=== PATIENT | female | born 1975 | race Caucasian/White ===

== ENCOUNTER 2020-07-11 14:44 | Outpatient (REF) | payer OTHER, SELFPAY ==
--- NOTE | 2020-07-11 | MM_ITS ---
EXAMINATION: MM DIAGNOSTIC DIGITAL BREAST TOMOSYNTHESIS, BILATERAL CLINICAL INFORMATION: Due for yearly exam. Probable benign bilateral calcifications for follow-up. The lifetime risk of breast cancer based on the Tyrer-Cuzick Model is 8%. COMPARISON: Mammography: 12/25/2019, 06/25/2019, 06/08/2019 (BI-RADS 0), 06/01/2018 TECHNIQUE: Digital breast tomosynthesis is performed in both the craniocaudal and mediolateral oblique views along with computer-aided detection (CAD). Synthesized 2D images are generated from the tomosynthesis. Additional magnification views are obtained: Bilateral MLO, left CC, right CC x2. FINDINGS: There are scattered areas of fibroglandular density (ACR BI-RADS breast composition Category b). Parenchymal pattern is similar to prior exams. There is no interval mass or architectural abnormality or developing density. The bilateral calcifications for follow-up posterior outer right breast, posterior 3:00 left breast and anterior 8:30 o'clock left breast are similar to prior diagnostic exams. There are no increasing calcifications. They will be reassessed again at next bilateral annual mammography, due in 12 months. Results are provided to the patient at time of visit by the technologist. IMPRESSION: There are no significant changes from prior study. Probable benign bilateral calcifications for follow-up are stable. ASSESSMENT: BI-RADS 3: Probably Benign RECOMMENDATION: Diagnostic mammography at time of next annual exam, due in 12 months. This patient's information was entered into a reminder system with a target due date for their next mammogram.
== END 2020-07-11 14:45 | disposition home or self-care (01) ==
LOC: HO.MAMMO 14:44
PROVIDERS: PCP Internal Medicine; Visit Provider Internal Medicine
DX: R92.1 Mammographic calcification found on diagnostic imaging of breast (principal)
CPT/HCPCS: 77062; 77066; 78013

== ENCOUNTER 2021-07-27 13:44 | Outpatient (REF) | payer OTHER, SELFPAY ==
--- NOTE | ~2021-07-27 | MM_ITS ---
EXAMINATION: MM DIAGNOSTIC DIGITAL BREAST TOMOSYNTHESIS, BILATERAL CLINICAL INFORMATION: Due for yearly. Probable benign bilateral calcifications for long-term surveillance. The lifetime risk of breast cancer based on the Tyrer-Cuzick Model is 8%. COMPARISON: Mammography: 07/11/2020, 12/25/2019, 06/25/2019, 06/08/2019 (BI-RADS 0), 06/01/2018 TECHNIQUE: Digital breast tomosynthesis is performed in both the craniocaudal and mediolateral oblique views along with computer-aided detection (CAD). Synthesized 2D images are generated from the tomosynthesis. FINDINGS: There are scattered areas of fibroglandular density (ACR BI-RADS breast composition Category b). There is fine fibronodular parenchymal pattern without interval mass or developing density or architectural abnormality. There are bilateral increased calcifications since 2018 without interval focal increased grouping or ductal distribution or interval pleomorphic types from prior diagnostic exams. Calcifications are now considered to be benign. The axilla and skin contours are unremarkable. Results are provided to the patient at time of visit by the technologist. MM/MM tomosynthesis diagnostic BI IMPRESSION: No significant changes from prior diagnostic studies. ASSESSMENT: BI-RADS 2: Benign RECOMMENDATION: Routine annual mammography screening. This patient's information was entered into a reminder system with a target due date for their next mammogram.
== END 2021-07-27 13:45 | disposition home or self-care (01) ==
LOC: HO.MAMMO 13:44
PROVIDERS: Visit Provider Internal Medicine
DX: R92.1 Mammographic calcification found on diagnostic imaging of breast (principal)
CPT/HCPCS: 77062; 77066

== ENCOUNTER 2021-08-11 11:19 | Outpatient (REF) | payer OTHER, SELFPAY | END 2021-08-11 11:20 | disposition home or self-care (01) | LOC: HO.LAB 11:19 | PROVIDERS: Visit Provider Internal Medicine | DX: Z20.822 Contact with and (suspected) exposure to COVID-19 (principal) | CPT/HCPCS: C9803; U0003; U0005 ==

== ENCOUNTER 2022-02-08 16:34 | Emergency (ER) | payer OTHER, SELFPAY ==
--- NOTE | ~2022-02-08 | XR_ITS ---
EXAMINATION: CHEST 2 VIEWS CLINICAL INFORMATION: cough CP . COMPARISON: 09/22/2015. TECHNIQUE: PA and lateral views of the chest obtained. FINDINGS: The lungs are hypoexpanded. No focal infiltrate, effusion, edema, or pneumothorax. Cardiac and mediastinal silhouettes are within normal limits for technique. No acute bony abnormality seen XR/XR chest 2V IMPRESSION: Hypoexpanded but otherwise no evidence of acute disease
--- NOTE | 2022-02-08 17:06 | ECG_ITS ---
Test Reason : chest pain Blood Pressure : / mmHG Vent. Rate : 101 BPM Atrial Rate : 101 BPM P-R Int : 170 ms QRS Dur : 080 ms QT Int : 340 ms P-R-T Axes : 036 000 001 degrees QTc Int : 440 ms Sinus tachycardia Otherwise normal ECG When compared with ECG of 29-NOV-2004 11:19, No significant change was found Referred By: Generic ED Physician Electronically Signed By:MASON MARSHALL MD
[2022-02-08 17:32] VITALS: BP 149/93; PULSE 100; RESP 16; TEMP 36.1; O2SAT 100; BMI 29.9
[2022-02-08 17:49] LABS: MANUAL DIFF FLAG NO
[2022-02-08 17:51] LABS: Basophils Absolute Auto 0.1 X10*3/uL (0.0-0.2); Basophils Percent Auto 0.6 % (0-2); Eosinophils Absolute Auto 0.1 X10*3/uL (0.0-0.4); Eosinophils Percent Auto 0.9 % (0-4); Hematocrit 30.6 % (37.0-47.0); Hemoglobin 9.1 g/dl (12.0-16.0); Imm Gran Abs Auto 0.03 X10*3/uL (0.00-0.03); Imm Gran Pct Auto 0.3 % (0.0-0.4); Lymphocytes Percent Auto 19.1 % (20-40); Mean Corpuscular HGB Conc 29.7 g/dl (31.0-35.0); Mean Corpuscular Hemoglobin 22.1 pg (27.0-33.0); Mean Corpuscular Volume 74.3 fL (80.0-98.0); Mean Platelet Volume 9.7 fL (9.4-12.3); Monocytes Absolute Auto 0.4 X10*3/uL (0.1-1.2); Monocytes Percent Auto 4.2 % (2-11); Neutrophils Absolute Auto 7.7 x10*3/uL (2.0-8.3); Neutrophils Percent Auto 74.9 % (45-73); Platelet Count 351 X10*3/uL (160-400); Red Blood Count 4.12 X10*6/uL (4.20-5.50); White Blood Count 10.3 X10*3/uL (4.8-10.8)
[2022-02-08 18:09] LABS: Influenza A Negative (Negative); Influenza B2 Negative (Negative)
[2022-02-08 18:11] LABS: Anion Gap 13 (12-20); Blood Urea Nitrogen 11 mg/dL (9-16); Calcium 9.7 mg/dL (8.4-10.2); Carbon Dioxide 25 mmol/L (22-29); Chloride 106 mmol/L (96-108); Creatinine Clr Calc Pharmacy 90.6; Estimated Glomerular Filt Rate > 60; Glucose Random 96 mg/dL (60-115); Sodium 140 mmol/L (135-145)
[2022-02-08 18:20] LABS: Troponin-I High Sensitivity < 3.5 ng/L (<3.5-17.0)
--- NOTE | 2022-02-08 20:48 | ED_ITS ---
HPI - Chest Pain General Chief Complaint: Chest Pain Stated Complaint: high BP/chest pains Time Seen by Provider: 02/08/22 20:47 Source: patient History of Present Illness HPI narrative: This is a 46-year-old female with history of asthma who complains of a cough for about a week, productive of yellow phlegm. The patient denies any fever. She has had tightness in her chest and has been using her albuterol inhaler, although she realizes it was . She has had some chest discomfort with coughing. She denies any sore throat. She has had some rhinorrhea. She had a home COVID test that was negative. She denies any abdominal pain, vomiting, diarrhea. She did note she had little swelling in her feet this morning that is gone now. Related Data Previous Rx's Medication Instructions Recorded albuterol sulfate 90 mcg/actuation 2 puff INHALATION Q4-6H PRN #8.5 g 02/08/22 aerosol inhaler epfxorrjmvmdiew-oyiwvqcebsqllya-WX 5 ml PO Q4-6H PRN #118 ml 02/08/22 2 mg-30 mg-10 mg/5 mL oral syrup (Bromfed DM) prednisone 20 mg tablet 40 mg PO DAILY #8 tab 02/08/22 Allergies Allergy/AdvReac Type Severity Reaction Status Date / Time SEASONAL ALLERGIES Allergy Mild RUNNY NOSE Uncoded 07/24/20 13:43 COUGH Review of Systems Review of Systems: Yes all other systems are reviewed and are negative Constitutional: Constitutional: Reports as per HPI and Denies fever(s) Eyes: Eyes: Reports as per HPI and Reports no additional eye complaints ENT: Reports system reviewed and no additional complaints, except as documented, Reports as per HPI, Reports nasal congestion, Reports nasal discharge and Denies sore throat Cardiovascular: Cardiovascular: Reports as per HPI, Denies chest pain and Reports dyspnea Respiratory: Respiratory: Reports as per HPI, Reports cough, Reports dyspnea and Reports wheezing Gastrointestinal: Gastrointestinal: Reports as per HPI, Denies abdominal pain, Denies diarrhea and Denies vomiting Genitourinary: Genitourinary: Reports as per HPI, Denies hematuria, Denies urinary frequency and Denies dysuria Musculoskeletal: Musculoskeletal: Reports no additional musculoskeletal complaints and Denies numbness Integumentary/Breasts: Skin/Breast: Reports as per HPI and Denies rash Neurologic: Reports as per HPI, Denies focal weakness and Denies numbness Psychiatric: Psychiatric: Reports no additional psychiatric complaints and Reports as per HPI Endocrine: Endocrine: Reports no additional endocrine complaints and Reports as per HPI Hematologic/Lymphatic: Hematologic/Lymphatic: Reports no additional hematologic/lymphatic complaints, Reports as per HPI and Reports other (No peripheral edema) Allergic/Immunologic: Allergic/Immunologic: Reports wheezing PMFSH Past Medical History Medical History Physical exam Surgical History History of section History of tubal ligation Family History Family History Father Medical history unknown Mother No problems noted. Maternal Grandmother Diabetes Social History Social History Advance Directives: No Advance Directives Information Provided: No Physical Exam Vital Signs: Vital Signs: Last Vital Signs Temp 96.9 F 02/08/22 17:32 Pulse 100 02/08/22 20:57 Resp 18 02/08/22 20:57 BP 149/93 H 02/08/22 17:32 Pulse Ox 100 02/08/22 17:32 BMI result Body Mass Index 29.9 Const: Other: PERRLA Conj Singer Mucous membranes moist Throat clear Neck supple Lungs CTA, mildly decreased breath sounds bilaterally, no distinct wheezes Heart RRR no murmurs rubs or gallops Abs soft, non tender, non distended Extremities no pitting edema Neuro alert and oriented x 3, non focal MDM - Chest Pain [facility] Narrative Medical decision making narrative: Patient with URI symptoms and a cough for several days, has some associated chest pain. Chest x-ray was negative. COVID test is negative. Patient did have she has somewhat decreased breath sounds on exam, no actual wheezes, does have history of asthma. Patient was given a nebulizer treatment with improvement. Patient is being given refill of her albuterol, and also prescribed cough medicine, and prednisone Lab Data Result diagrams: 02/08/22 17:41 02/08/22 17:41 Labs: Lab Results 02/08/22 02/08/22 02/08/22 Range/Units 17:41 17:41 17:41 WBC 10.3 (4.8-10.8) X10*3/uL RBC 4.12 L (4.20-5.50) X10*6/uL Hgb 9.1 L (12.0-16.0) g/dl Hct 30.6 L (37.0-47.0) % MCV 74.3 L (80.0-98.0) fL MCH 22.1 L (27.0-33.0) pg MCHC 29.7 L (31.0-35.0) g/dl RDW 18.0 H (11.0-16.0) % Plt Count 351 (160-400) X10*3/uL MPV 9.7 (9.4-12.3) fL Immature Gran % (Auto) 0.3 (0.0-0.4) % Neut % (Auto) 74.9 H (45-73) % Lymph % (Auto) 19.1 L (20-40) % [place] % (Auto) 4.2 (2-11) % Eos % (Auto) 0.9 (0-4) % Baso % (Auto) 0.6 (0-2) % Lymph # (Auto) 2.0 (1.2-4.9) X10*3/uL [place] # (Auto) 0.4 (0.1-1.2) X10*3/uL Eos # (Auto) 0.1 (0.0-0.4) X10*3/uL Baso # (Auto) 0.1 (0.0-0.2) X10*3/uL Abs Immat Gran (auto) 0.03 (0.00-0.03) X10*3/uL Absolute Neuts (auto) 7.7 (2.0-8.3) x10*3/uL Absolute Nucleated RBC 0.000 (0.0-0.012) X10*3/uL Nucleated RBC % (auto) 0.0 (0.0-0.2) /100WBC Sodium 140 (135-145) mmol/L Potassium 4.0 (3.3-5.1) mmol/L Chloride 106 (96-108) mmol/L Carbon Dioxide 25 (22-29) mmol/L Anion Gap 13 (12-20) BUN 11 (9-16) mg/dL Creatinine 0.76 (0.5-1.4) mg/dL Estim Creat Clear Calc 90.6 Estimated GFR > 60 Random Glucose 96 (60-115) mg/dL Calcium 9.7 (8.4-10.2) mg/dL Troponin I High Sens < 3.5 (<3.5-17.0) ng/L Influenza Type A (RADHIKA) (Negative) Influenza Type B (RADHIKA) (Negative) Influenza A & B Note 02/08/22 Range/Units 17:41 WBC (4.8-10.8) X10*3/uL RBC (4.20-5.50) X10*6/uL Hgb (12.0-16.0) g/dl Hct (37.0-47.0) % MCV (80.0-98.0) fL MCH (27.0-33.0) pg MCHC (31.0-35.0) g/dl RDW (11.0-16.0) % Plt Count (160-400) X10*3/uL MPV (9.4-12.3) fL Immature Gran % (Auto) (0.0-0.4) % Neut % (Auto) (45-73) % Lymph % (Auto) (20-40) % [place] % (Auto) (2-11) % Eos % (Auto) (0-4) % Baso % (Auto) (0-2) % Lymph # (Auto) (1.2-4.9) X10*3/uL [place] # (Auto) (0.1-1.2) X10*3/uL Eos # (Auto) (0.0-0.4) X10*3/uL Baso # (Auto) (0.0-0.2) X10*3/uL Abs Immat Gran (auto) (0.00-0.03) X10*3/uL Absolute Neuts (auto) (2.0-8.3) x10*3/uL Absolute Nucleated RBC (0.0-0.012) X10*3/uL Nucleated RBC % (auto) (0.0-0.2) /100WBC Sodium (135-145) mmol/L Potassium (3.3-5.1) mmol/L Chloride (96-108) mmol/L Carbon Dioxide (22-29) mmol/L Anion Gap (12-20) BUN (9-16) mg/dL Creatinine (0.5-1.4) mg/dL Estim Creat Clear Calc Estimated GFR Random Glucose (60-115) mg/dL Calcium (8.4-10.2) mg/dL Troponin I High Sens (<3.5-17.0) ng/L Influenza Type A (RADHIKA) Negative (Negative) Influenza Type B (RADHIKA) Negative (Negative) Influenza A & B Note See Note Imaging Data Chest x-ray: Radiologist's impression: IMPRESSION: Hypoexpanded but otherwise no evidence of acute disease ECG Data ECG #1: ECG interpretation date: 02/08/22 ECG interpretation time: 20:53 Interpretation: Normal sinus rhythm with a rate of 101. No ST elevation depression. Normal QRS axis. Discharge Plan Discharge Clinical Impression: URI (upper respiratory infection), Asthma exacerbation Patient Disposition: Home, Self-Care Instructions: Asthma (ED), Upper Respiratory Infection (ED) Additional Instructions: Drink plenty of fluids. Use the albuterol inhaler, and prednisone as prescribed. Use the room affect cough medicine. Return for any new or worse symptoms. Prescriptions: New albuterol sulfate 90 mcg/actuation HFA aerosol inhaler 2 puff inhalation Q4-6H PRN (Reason: shortness of breath or wheezing) Qty: 8.5 1RF prednisone 20 mg tablet 40 mg PO DAILY Qty: 8 0RF atyrwtzhgkylnyg-xswquditw-FX [Bromfed DM] 2-30-10 mg/5 mL syrup 5 ml PO Q4-6H PRN (Reason: cold symptoms) Qty: 118 0RF Stand Alone Forms: Work/School Release Interventions: ED Discharge Assessment Last Done: 02/08/22 22:31 Discharge Date/Time: 02/08/22 22:31
[2022-02-08] MEDS: Albuterol/Iprat 2.5/0.5MG 3 ML AMPUL.NEB INHALE (20:56)
[2022-02-08 20:57] VITALS: PULSE 100; RESP 18; O2SAT 100
[2022-02-08] MEDS: predniSONE 20 MG TABLET 40 MG PO (21:43)
== END 2022-02-08 22:31 | disposition home or self-care (01) ==
PROVIDERS: Emergency Provider Emergency Medicine; PCP Internal Medicine
DX: J06.9 Acute upper respiratory infection, unspecified (principal); J45.901 Unspecified asthma with (acute) exacerbation; R05.9 Cough, unspecified; R07.89 Other chest pain; Z20.822 Contact with and (suspected) exposure to COVID-19; Z79.899 Other long term (current) drug therapy
CPT/HCPCS: 71046; 80048; 84484; 85025; 87502; 93005; 94640; 99284

== ENCOUNTER 2023-03-27 21:31 | Observation (INO) | payer OTHER, SELFPAY ==
[2023-03-27] VITALS (8 sets, daily range): BP systolic 135–157; BP diastolic 59–87; PULSE 122–137; RESP 13–20; TEMP 36.8–37.1; O2SAT 99–100; BMI 29.2
--- NOTE | 2023-03-27 21:32 | ED_ITS ---
HPI - General Adult General Chief complaint: Allergic Reaction Stated complaint: anaphalaxis Time Seen by Provider: 03/27/23 21:32 Source: patient Mode of arrival: ambulatory Limitations: no limitations History of Present Illness HPI narrative: Patient is a 48 year old assigned female at with no reported medical history presenting to the emergency department today with an allergic reaction. Patient states that 15 minutes prior to arrival she had a peInsurityan candy bar that had coconut in it. Patient states that almost immediately after she began to feel like her throat was swelling and her voice changed. Patient denies any dizziness, lightheadedness, abdominal pain, nausea, vomiting, fever, chills, bl urry vision, double vision, loss of vision, chest pain, difficulty breathing, shortness of breath, back pain, night sweats, pain with urination, increased urinary frequency, increased urinary urgency, blood in her urine or stool, syncope or a near syncopal episode, recent trauma or falls, bowel incontinence, bladder incontinence, bowel retention, bladder retention, or any other complaints at this time. Onset (ago): minute(s) (15) Severity: severe Severity scale (1-10): 7 Relieving factors: none Exacerbating factors: none Associated symptoms: denies other symptoms Treatments prior to arrival: none Related Data Previous Rx's Medication Instructions Recorded albuterol sulfate 90 mcg/actuation 2 puff inhalation Q4-6H PRN 02/08/22 aerosol inhaler shortness of breath or wheezing #8.5 grams Allergies Allergy/AdvReac Type Severity Reaction Status Date / Time SEASONAL ALLERGIES Allergy Mild RUNNY NOSE Uncoded 03/28/23 00:57 COUGH Review of Systems Constitutional: Constitutional: Reports no additional constitutional complaints, Denies chills, Denies fever(s) and Denies night sweats Eyes: Eyes: Reports no additional eye complaints, Denies blurry vision, Denies change in vision, Denies diplopia, Denies eye discharge, Denies loss of vision and Denies eye pain ENT: Reports change in voice, Denies dizziness and Reports throat swelling Cardiovascular: Cardiovascular: Reports no additional cardiovascular complaints, Denies chest pain, Denies lightheadedness, Denies Loss of Co nsciousness and Denies dyspnea Respiratory: Respiratory: Reports no additional respiratory complaints and Denies dyspnea Gastrointestinal: Gastrointestinal: Reports no additional gastrointestinal complaints, Denies abdominal pain, Denies melena, Denies hematochezia, Denies change in bowel habits and Denies change in stool character Genitourinary: Genitourinary: Denies hematuria, Denies urinary frequency, Denies dysuria, Denies urinary incontinence, Denies urinary hesitancy and Denies urinary urgency Musculoskeletal: Musculoskeletal: Reports no additional musculoskeletal complaints, Denies numbness and Denies tingling Neurologic: Denies dizziness, Denies loss of vision, Denies numbness and Denies tingling Psychiatric: Psychiatric: Reports no additional psychiatric complaints Endocrine: Endocrine: Reports no additional endocrine complaints Hematologic/Lymphatic: Hematologic/Lymphatic: Reports no additional hematologic/lymphatic complaints Allergic/Immunologic: Allergic/Immunologic: Reports no additional allergic/immunologic complaints and Reports throat swelling PMFSH Past Medical History Attestation statement: The following information was validated with the patient. Source: old records reviewed and nursing notes reviewed Medical History Physical exam Surgical History History of section History of tubal ligation Family History Family History Father Medical history unknown Mother No problems noted. Maternal Grandmother Diabetes Social History Social History Alcohol intake: never Smoked in Last 30 Days: No Use of substances other than those prescribed or required for medical reasons: No Advance Directives: No Advance Directives Information Provided: No Patient : No Physical Exam ED Vital Signs: Vital Signs - 24 hr 03/27/23 21:38 03/27/23 21:49 03/27/23 21:41 Temperature 98.3 F Pulse Rate 124 H 137 H 122 H Respiratory Rate 18 Blood Pressure 135/87 135/87 135/87 Pulse Oximetry 100 Oxygen Delivery Method Room Air 03/27/23 21:53 03/27/23 22:17 03/27/23 22:30 Temperature Pulse Rate 124 H 128 H 128 H Respiratory Rate 16 13 Blood Pressure 148/84 H 157/77 H Pulse Oximetry 100 Oxygen Delivery Method Room Air 03/27/23 22:36 03/27/23 23:15 03/28/23 00:42 Temperature 98.7 F Pulse Rate 132 H 126 H 131 H Respiratory Rate 20 Blood Pressure 154/74 H 148/59 H 112/50 L Pulse Oximetry 99 Oxygen Delivery Method Room Air BMI result Body Mass Index 29.2 Const General: cooperative, no acute distress, alert and awake Nutritional Appearance: well nourished Orientation/consciousness: patient oriented x3 Limitations: no limitations HENMT Head: Yes normal to inspection and Yes atraumatic Ears: hearing grossly normal bilaterally and external ears normal General nose exam: Normal external nose present, no nasal discharge noted and no epistaxis Face and sinus: Yes normal facial exam, No abrasion and No laceration Mouth: no drooling and other (significant uvular swelling and a hoarse voice) Eyes General: appearance normal, both eyes and all related structures Periorbital: periorbital findings normal Eyelids: Yes eyelids normal Conjunctivae: conjunctivae normal Pupils: Equal, round and reactive pupils present EOM: EOMs intact bilaterally Neck Neck: Yes normal visual inspection, Yes full ROM and Yes no lymphadenopathy Chest Chest palpation & inspection: normal inspection of the chest Resp Effort & Inspection: normal respiratory effort and able to speak in complete sentences Auscultation: clear to auscultation bilaterally Cardio Rate: regular rate Rhythm: regular rhythm GI Inspection: Yes normal to inspection Neuro General: patient oriented x3 and moves all extremities Cranial nerves: Yes Equal, round and reactive pupils present Cognition (Neuro): normal cognition Motor exam (neuro): 5/5 motor strength present throughout Sensory Exam: Normal double simultaneous stimulation for sensation Coordination: heduqw-bq-vtux test normal Extrem General: Yes normal to inspection, Yes full ROM and Yes capillary refill normal Psych Appearance: grossly normal Mental Status: mental status grossly normal Affect: normal affect Attitude: cooperative Thought process: Normal thought process present Thought content: Normal thought content present Insight: Good insight present (Psych) Medications Administered Generic Name Dose Route Start Last Admin Trade Name Freq PRN Reason Stop Dose Admin Epinephrine 5 mg/ Dextrose 255 mls @ 0 mls/hr 03/27/23 22:15 03/28/23 00:42 IVCONT 0 mcg/kg/min .Q0M DAVID 0 mls/hr Titration Protocol Per Protocol Potassium Chloride 10 meq in 100 mls @ 100 mls/hr 03/27/23 22:45 03/27/23 23:54 Potassium Chloride/H20 IV 03/28/23 02:44 100 mls/hr Q1H DAVID Administration Discontinued Medications Generic Name Dose Route Start Last Admin Trade Name Hudson PRN Reason Stop Dose Admin Diphenhydramine HCl 50 mg 03/27/23 21:33 03/27/23 21:46 Diphenhydramine Hcl 50 Mg/Ml Vial IVPUSH 03/27/23 21:34 50 mg ONCE ONE Administration Epinephrine 0.3 mg 03/27/23 21:34 03/27/23 21:41 Epinephrine 1 Mg/Ml Vial IM 03/27/23 21:35 0.3 mg STAT STA Administration Epinephrine 0.3 mg 03/27/23 21:44 03/27/23 21:49 Epinephrine 1 Mg/Ml Vial IM 03/27/23 21:45 0.3 mg STAT STA Administration Epinephrine 0.5 ml 03/27/23 21:45 03/27/23 21:53 Racepinephrine Hcl 0.5 Ml Vial.Neb INHALE 03/27/23 21:46 0.5 ml ONCE ONE Administration Epinephrine 0.3 mg 03/27/23 22:13 03/27/23 22:17 Epinephrine 1 Mg/Ml Vial IM 03/27/23 22:14 0.3 mg STAT STA Administration Methylprednisolone Sodium Succinate 60 mg 03/27/23 21:33 03/27/23 21:46 Methylprednisolone Sod Succ 125 Mg/2 Ml Vial IVPUSH 03/27/23 21:34 60 mg ONCE ONE Administration Medical Decision Making Medical Decision Making [facility] Narrative: Patient is a 48 year old assigned female at with no reported medical hist ory presenting to the emergency department today with an allergic reaction. Patient's physical exam was as noted in the physical exam portion of this chart. Patient's blood work showed a decreased potassium of 2.8 however, it was otherwise unremarkable. Patient was given 0.3 mg IM at 2133 with benadryl and solu medrol. Patient's swelling did not improve. Patient was given an additional 0.3mg of IM epi at 2143 as well as racemic epi. Her swelling did not improve. Patient was given an additional 0.3mg of IM epi and at that time the decision to start an epi drip was made by myself and my [address]ffie [address]. Santamaria. At 2240, I contacted Dr. Warren, the intesnivist production control manager, who agreed to admission into the ICU and stated his NEGIN would come examine the patient. At 0040 on 03/28/2023 the ICU NEGIN came down to the department and examined the patient. He stopped the epi drip and stated the patient looked significantly better and should be admitted to the hospitalist rather than the ICU. I re-examined the patient and the patient's swelling has improved significantly. I spoke to the hospitalist who agreed to admission. I explained my physical exam findings as well as all test results to the patient. I answered all questions asked by the patient. Patient verbalized agreement and understanding with this treatment plan and admission. Differential Diagnosis Differential Diagnoses: The differential diagnosis associated with the presentation includes allergic reaction, uvular swelling Admission/Observation Consideration of admission/observation: Escalation of care including admission/observation considered Patient to be admitted. Consult Healthcare Provider Management of the patient was discussed with: Hospitalist (as noted in the MDM portion of this chart.) and Coding Compliance Auditor (as noted in the MDM portion of this chart.) Lab Data MDM Lab Attestation statement: I reviewed the patient's lab results. My interpretation of these results is noted in the MDM portion of this chart. 03/27/23 22:11 03/27/23 22:11 Labs: Lab Results 03/27/23 03/27/23 Range/Units 22:11 22:11 WBC 13.9 H (4.8-10.8) X10*3/uL RBC 4.74 (4.20-5.50) X10*6/uL Hgb 10.1 L (12.0-16.0) g/dl Hct 35.1 L (37.0-47.0) % MCV 74.1 L (80.0-98.0) fL MCH 21.3 L (27.0-33.0) pg MCHC 28.8 L (31.0-35.0) g/dl RDW 18.6 H (11.0-16.0) % Plt Count 424 H (160-400) X10*3/uL MPV 9.6 (9.4-12.3) fL Immature Gran % (Auto) 0.2 (0.0-0.4) % Neut % (Auto) 54.3 (45-73) % Lymph % (Auto) 34.6 (20-40) % [place] % (Auto) 8.6 (2-11) % Eos % (Auto) 1.6 (0-4) % Baso % (Auto) 0.7 (0-2) % Lymph # (Auto) 4.8 (1.2-4.9) X10*3/uL [place] # (Auto) 1.2 (0.1-1.2) X10*3/uL Eos # (Auto) 0.2 (0.0-0.4) X10*3/uL Baso # (Auto) 0.1 (0.0-0.2) X10*3/uL Abs Immat Gran (auto) 0.03 (0.00-0.03) X10*3/uL Absolute Neuts (auto) 7.5 (2.0-8.3) x10*3/uL Absolute Nucleated RBC 0.000 (0.0-0.012) X10*3/uL Nucleated RBC % (auto) 0.0 (0.0-0.2) /100WBC Sodium 141 (135-145) mmol/L Potassium 2.8 L D (3.3-5.1) mmol/L Chloride 105 (96-108) mmol/L Carbon Dioxide 24 (22-29) mmol/L Anion Gap 15 (12-20) BUN 17 H (9-16) mg/dL Creatinine 0.81 (0.5-1.4) mg/dL Estim Creat Clear Calc 82.3 Estimated GFR > 60 Random Glucose 109 (60-115) mg/dL Calcium 9.9 (8.4-10.2) mg/dL Magnesium 2.1 (1.6-2.6) mg/dL Total Bilirubin 0.3 (0.0-1.0) mg/dL AST 29 (5-31) U/L ALT 24 (0-31) U/L Alkaline Phosphatase 87 (39-117) U/L Total Protein 8.3 H (6.5-8.0) g/dL Albumin 4.5 (3.5-5.0) g/dL Critical Care Time Critical Care Time Critical Care Time: Yes Total Critical Care Time: 45 Attestation: I spent 45 minutes of Critical Care Time with this patient. This does not include time spent on separately reported billable procedures. Discharge Plan Discharge Clinical Impression: Allergic reaction Patient Disposition: Admitted As Inpatient Prescriptions: No Action albuterol sulfate 90 mcg/actuation HFA aerosol inhaler 2 puff inhalation Q4-6H PRN (Reason: shortness of breath or wheezing) Qty: 8.5 1RF prednisone 20 mg tablet 40 mg PO DAILY Qty: 8 0RF kcwklaolvupkrbo-qyqvetizk-KI [Bromfed DM] 2-30-10 mg/5 mL syrup 5 ml PO Q4-6H PRN (Reason: cold symptoms) Qty: 118 0RF
[2023-03-27] MEDS: EPINEPHrine 1 MG/ML VIAL 0.3 MG IM ×3 (21:41→22:17)
[2023-03-27] MEDS: methylPREDNISolone Sod Succ 125 MG/2 ML VIAL 60 MG IVPUSH (21:46)
[2023-03-27] MEDS: diphenhydrAMINE HCL 50 MG/ML VIAL IVPUSH (21:46)
--- NOTE | 2023-03-27 21:51 | PC.NURSE ---
Assumed care of pt. Pt sitting on stretcher, obvious distress noted. pt has swelling in back of throat, complaints of difficulty swallowing, swelling of tongue. 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 Medicated pt per orders with some relief. respiratory and provider at bedside for further assessment and treatments. Pt maintaning own airway and able to speak at this time, vitals as charted. WCTM.
[2023-03-27] MEDS: Racepinephrine HCL 0.5 ML VIAL.NEB INHALE (21:53)
[2023-03-27 22:14] LABS: MANUAL DIFF FLAG NO
[2023-03-27 22:18] LABS: Basophils Absolute Auto 0.1 X10*3/uL (0.0-0.2); Basophils Percent Auto 0.7 % (0-2); Eosinophils Absolute Auto 0.2 X10*3/uL (0.0-0.4); Eosinophils Percent Auto 1.6 % (0-4); Hematocrit 35.1 % (37.0-47.0); Hemoglobin 10.1 g/dl (12.0-16.0); Imm Gran Abs Auto 0.03 X10*3/uL (0.00-0.03); Imm Gran Pct Auto 0.2 % (0.0-0.4); Lymphocytes Absolute Auto 4.8 X10*3/uL (1.2-4.9); Lymphocytes Percent Auto 34.6 % (20-40); Mean Corpuscular HGB Conc 28.8 g/dl (31.0-35.0); Mean Corpuscular Hemoglobin 21.3 pg (27.0-33.0); Mean Corpuscular Volume 74.1 fL (80.0-98.0); Mean Platelet Volume 9.6 fL (9.4-12.3); Monocytes Absolute Auto 1.2 X10*3/uL (0.1-1.2); Monocytes Percent Auto 8.6 % (2-11); Neutrophils Absolute Auto 7.5 x10*3/uL (2.0-8.3); Neutrophils Percent Auto 54.3 % (45-73); Platelet Count 424 X10*3/uL (160-400); Red Blood Count 4.74 X10*6/uL (4.20-5.50); Red Cell Distribution Width 18.6 % (11.0-16.0); White Blood Count 13.9 X10*3/uL (4.8-10.8)
[2023-03-27] MEDS: EPINEPHrine 5 MG in Dextrose 5 % 250 ML 45.8 MG IVCONT (22:36)
[2023-03-27 22:39] LABS: Alanine Aminotransferase 24 U/L (0-31); Albumin Level 4.5 g/dL (3.5-5.0); Alkaline Phosphatase 87 U/L (39-117); Anion Gap 15 (12-20); Aspartate Amino Transferase 29 U/L (5-31); Bilirubin Total 0.3 mg/dL (0.0-1.0); Blood Urea Nitrogen 17 mg/dL (9-16); Calcium 9.9 mg/dL (8.4-10.2); Carbon Dioxide 24 mmol/L (22-29); Chloride 105 mmol/L (96-108); Creatinine Clr Calc Pharmacy 82.3; Estimated Glomerular Filt Rate > 60; Glucose Random 109 mg/dL (60-115); Magnesium 2.1 mg/dL (1.6-2.6); Potassium 2.8 mmol/L (3.3-5.1); Sodium 141 mmol/L (135-145); Total Protein 8.3 g/dL (6.5-8.0)
[2023-03-27] MEDS: Potassium Chloride/H20 10 MEQ/100 ML PIGGYBACK 100 MEQ IV ×2 (22:54→23:54)
--- NOTE | 2023-03-27 23:16 | MHC.EDTECH ---
THIS PCT ASSUMED CARE OF PATIENT AT 2300 ,VITALS SIGN TAKEN PT IS RESTING QUIETLY IN BED ,CECILIA MENDOZA AND DEMETRI IS AWARE OF PT HIGH HEART RATE .
--- NOTE | 2023-03-27 23:42 | PC.NURSE ---
Pt reponding well to administered medication drip. Maintaining some swelling in back of throat, but speech improved from arrival. Pt sts feeling palpitaions secondary to medication admin. WCTM
[2023-03-28 00:42] VITALS: BP 112/50; PULSE 131
--- NOTE | 2023-03-28 00:43 | PC.NURSE ---
Per inpatient, pt to receive additional medications, Epi drip on hold, and plan for reevaluation for possible downgrade.
--- NOTE | 2023-03-28 00:50 | P.CONCC_ITS ---
History of Present Illness Data of Consult Service Date: 03/28/23 Requesting physician: Jen Mcduffie Primary Care Provider: Leslie Resendiz MD HPI Reason for consult: allergic reaction HPI: ?48-year-old female without a past medical history, presents to us via consult from the emergency room where she was seen with complaints of shortness of breath after eating a candy brought to her from [place], even though she has had these in the past, she thinks that maybe the coconut in it is causing her to have a allergic reaction.? She immediately felt the her voice was changing and had a sensation as if her throat was swelling.? Denies any rash, problems speaking, swallowing, any drooling, shortness of breath.? She does not take any medications and does not think there is anything else that could have caused this. ? 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 ?Her workup in addition was significant for low potassium of 2.6.? The patient was given 60 mg of Solu-Medrol and 50 mg of Benadryl followed by a few doses of epinephrine IM and subsequently the patient was placed on a epinephrine drip. ? During my evaluation, the patient is able to speak in full sentences, denies any of the above-mentioned symptoms again, she did not have any lip swelling, feels much better and is eager to have some more ice chips.? Currently denies any dizziness, lightheadedness, arm or leg swelling, neck swelling, rash, itchiness and does not take any medications. Patient does feel slightly tachycardic but I explained to her disease due to the medications she is receiving. ? Review of systems: As above, otherwise the patient denies any prior history of strokes, cold intolerance, migraine headaches, head trauma, no eyes, ears or nose problems, no thyroid disease, denies any history of chest pain, palpitations, coronary disease, cough, sputum production, pneumonia, bronchitis, COPD or emphysema, abdominal pain, nausea, vomiting, diarrhea, abdominal surgeries, melena, hematochezia, hematemesis, hematuria, kidney stones, liver problems, immunocompromise state of any kind, no history of DVT or PE, leg edema, fractures or extremity surgeries all other review of systems were reviewed and they were all negative. ? Past Medical History:? As above ? Past Surgical History: Tubal ligation ? Family history:? Her grandmother had diabetes ? Social History:? Lives home, no history of alcohol, tobacco or drug use ever. ? CODE STATUS: FULL CODE ? Allergies: NKDA ? Home Medications: See Med Rec ? PHYSICAL EXAM: VS: 112/50, 131, 16, 96% room air General:? Alert oriented x3 no acute distress.? Speaking full sentences.? Speech is well articulated, thought process is coherent.? Following all commands. Skin:? Intact, no lesions, edema, erythema, clubbing or cyanosis.? No ulcers. HEENT:? Head is normocephalic, atraumatic, pupils equal round reactive to light accommodation bilaterally.? Extraocular movements appear intact.? Buccal mucosa is moist, there is some minimal uvular edema however her airway appears to be fully patent, there is no anatomical obstruction during exam, the patient is able to swallow her own saliva and is consuming ice chips without any cough, pain or difficulty. ?Neck is supple without lymphadenopathy, thickness or swelling. Cardiac:? Tachycardic 130 beats per minute.? 3/6 left upper sternal border murmur, appears crash in though.? No rubs or gallops. ? Pulmonary:? Clear to auscultation, no wheezes, rales or rhonchi. Abdomen:? Protuberant, positive bowel sounds in all 4 quadrants.? Soft, nontender, no rebound or guarding.? Musculoskeletal:? Moving all 4 extremities upon request a major joints, there is no crepitus or tenderness.? The strength is 5/5 bilaterally and throughout all 4 extremities.? There is no leg edema , no calf tenderness , no leg asymmetry.? Gait not assessed at this point. Neurologic:? As above, cranial nerves 2-12 are grossly intact.? No focal deficits noted. Vascular:? 2+ pulses upper and lower extremities distally. ? SIGNIFICANT LABORATORY DATA:? As above White blood cells 13.9, hemoglobin 10.1, hematocrit 35.1, platelets 424, M CV 74, eosinophils 1.6%.? Sodium 141, potassium 2.8, chloride 105, carbon dioxide 24, anion gap 15, BUN 17, creatinine 0.8, magnesium 2.1, calcium 9.9.? Random glucose 109. ? REVIEW OF IMAGES: ?Not performed. ? EKG REVIEW: ?Sinus tachycardia 101 beats per minute.? There is no ST elevations, no ST depressions.? QTC 440.? No comparison. ? ASSESSMENT : 1. Acute allergic reaction (I do not think this represents anaphylaxis or angioedema) 2. Acute hypokalemia 3. Reactive tachycardia 4. Reactive leukocytosis 5. Microcytic anemia rule out iron deficiency, microscopic bleeding 6. Thrombocytosis NOS 7. Clinical dehydration with borderline BUN creatinine ratio of 21 ? PLAN OF CARE: As above mentioned, the patient was seen, examined and evaluated by me, I do not think the patient needs to go to ICU at this point.? The patient is clearly doing well at this point sitting up straight, happy and talkative, no stridor, no drooling, no tripoding, no wheezing, no difficulty swallowing, no shortness of breath during the immediate reaction or now. I do not think the patient needs epinephrine drip at this point. The patient should receive ongoing doses of steroids perhaps 60 mg every 6 hours for the next 24 hours Benadryl 50 mg q.8 hours I did suggest starting her on famotidine now and every 12 hours. Even the near future her weight is again of concern, a soft tissue lateral x-ray can be obtained.? Certainly the patient deteriorates will be happy to re- evaluate this patient. The case was discussed in detail with the physician procurement assistant from the emergency room as well as Dr. Mcduffie, in addition the case was discussed with hospitalist. Patient should have outpatient allergy testing.? Coconut should be listed as an allergy as according to the patient is the most likely cause of her symptoms. ? Critical care time used for critical evaluation of this patient, diagnosis, treatment and coordination of care, review her records and documentation TOTAL CRITICAL CARE TIME 60 MIN . discussion and coordination with consultants, completely separate from any procedures performed. Patient's care was discussed in detail with Dr. Martini.? He is aware of all the above as well as the plan of care for this patient. [facility] Past Medical History Medical History Physical exam Family History Family History Father Medical history unknown Mother No problems noted. Maternal Grandmother Diabetes Surgical History Surgical History History of section History of tubal ligation Social History Social History Alcohol intake: never Patient Tobacco Use Status: Never used Tobacco Smoked in Last 30 Days: No Use of substances other than those prescribed or required for medical reasons: No Advance Directives: No Advance Directives Information Provided: No Nutrition Risks: No Nutritional Risk Patient : No Meds Allergies Allergy/AdvReac Type Severity Reaction Status Date / Time coconut Allergy Anaphylaxis Verified 03/28/23 03:06 SEASONAL ALLERGIES Allergy Mild RUNNY NOSE Uncoded 03/28/23 00:57 COUGH Active Medications: Current Medications Epinephrine 5 mg/ Dextrose 255 mls @ 0 mls/hr IVCONT .Q0M DAVID; Protocol Last Titration: 03/28/23 00:42 Dose: 0 mcg/kg/min, 0 mls/hr Potassium Chloride (Potassium Chloride/H20) 10 meq in 100 mls @ 100 mls/hr IV Q1H DAVID Stop: 03/28/23 02:44 Last Admin: 03/27/23 23:54 Dose: 100 mls/hr Pharmacy Consult (Consult Rx Perform Med Rec) 1 each MISCELLANE ONCE PRN PRN Reason: Consult order Physical Exam Vital Signs: Vital Signs: Last Vital Signs Temp 98.7 F 03/27/23 23:15 Pulse 131 H 03/28/23 00:42 Resp 20 03/27/23 23:15 BP 112/50 L 03/28/23 00:42 Pulse Ox 99 03/27/23 23:15 O2 Del Method Room Air 03/27/23 23:15 BMI result Body Mass Index 29.2 Results Labs 03/27/23 22:11 03/27/23 22:11 Labs: Short CBC 03/27/23 Range/Units 22:11 WBC 13.9 H (4.8-10.8) X10*3/uL Hgb 10.1 L (12.0-16.0) g/dl Hct 35.1 L (37.0-47.0) % Plt Count 424 H (160-400) X10*3/uL BMP 03/27/23 22:11 Sodium 141 Potassium 2.8 L D Chloride 105 Carbon Dioxide 24 BUN 17 H Creatinine 0.81 Calcium 9.9 Liver Function 03/27/23 Range/Units 22:11 Total Bilirubin 0.3 (0.0-1.0) mg/dL AST 29 (5-31) U/L ALT 24 (0-31) U/L Alkaline Phosphatase 87 (39-117) U/L Albumin 4.5 (3.5-5.0) g/dL Assessment and Plan Time Spent With Patient Time: Total time managing care of this patient today ____ minutes.
[2023-03-28] MEDS: Potassium Chloride/H20 10 MEQ/100 ML PIGGYBACK 100 MEQ IV ×2 (00:51→01:56)
[2023-03-28] MEDS: Famotidine/PF 20 MG/2 ML VIAL 40 MG IVPUSH (00:51)
--- NOTE | 2023-03-28 01:02 | PC.NURSE ---
Continuing K administration per orders. Pt with no continued complaints at this time. Voice sounds clear, baseline per pt and sig other present. WCTM for possible downgrade.
--- NOTE | 2023-03-28 01:41 | P.HPHOSP_ITS ---
History of Present Illness Date of Service: 03/28/23 Chief Complaint: allergic reaction this is a 40-year-old female with no significant past medical history who comes in from home after having an allergic reaction. She reports that she ate a piece of sweet that contained coconut, and shortly after developed mouth tingling, and felt like her throat was closing and she had difficulty breathing and talking. she felt that her throat was swelling. She otherwise denies any chest pain, no change in vision, no cough, no shortness of breath, no abdominal pain nausea or vomiting, no diarrhea constipation, no urinary symptoms and no lower extremity edema. On arrival to the ED patient noted to have uvula swel ling. she received IM Benadryl and Solu-Medrol with swelling persistent, she was a also given IM epinephrine as well as racemic epi. His swelling did not improve. Patient was given an additional 0.3 mg of IM epi and the decision was made to start her on an epi drip. Patient was initially accepted to ICU but several hours later she did improve while awaiting a bed. After evaluation by ICU a PP, patient was noted to be significantly improved clinically. On my exam patient has also been improved, and reports that her swelling has gone down significantly. Patient will be admitted for monitoring overnight. On arrival to the ED patient noted to be tachycardic in the 120s to 130s, blood pressure otherwise stable labs are significant for WBC count of 13.9, potassium 2.8 improved after r epletion Patient will be admitted for monitoring Review of Systems Review of Systems: Yes all other systems are reviewed and are negative [facility] Medical History (Updated 03/28/23 @ 06:31 by Venancio Simms MD) No pertinent past medical history Physical exam Family History Father Medical history unknown Mother No problems noted. Maternal Grandmother Diabetes Surgical History History of section History of tubal ligation Social History Alcohol intake: never Patient Tobacco Use Status: Never used Tobacco Smoked in Last 30 Days: No Use of substances other than those prescribed or required for medical reasons: No Advance Directives: No Advance Directives Information Provided: No Nutrition Risks: No Nutritional Risk Patient : No Meds Allergies Allergy/AdvReac Type Severity Reaction Status Date / Time coconut Allergy Anaphylaxis Verified 03/28/23 03:06 SEASONAL ALLERGIES Allergy Mild RUNNY NOSE Uncoded 03/28/23 00:57 COUGH Active Medications: Current Medications Epinephrine 5 mg/ Dextrose 255 mls @ 0 mls/hr IVCONT .Q0M DAVID; Protocol Last Titration: 03/28/23 00:42 Dose: 0 mcg/kg/min, 0 mls/hr Potassium Chloride (Potassium Chloride/H20) 10 meq in 100 mls @ 100 mls/hr IV Q1H DAVID Stop: 03/28/23 02:44 Last Admin: 03/28/23 00:51 Dose: 100 mls/hr Pharmacy Consult (Consult Rx Perform Med Rec) 1 each MISCELLANE ONCE PRN PRN Reason: Consult order Physical Exam Vital Signs and Narrative: Vital Signs: Last Vital Signs Temp 98.7 F 03/27/23 23:15 Pulse 131 H 03/28/23 00:42 Resp 20 03/27/23 23:15 BP 112/50 L 03/28/23 00:42 Pulse Ox 99 03/27/23 23:15 O2 Del Method Room Air 03/27/23 23:15 BMI result Body Mass Index 29.2 Const: Other: patient appears comfortable, sitting up in bed, no acute distress, talking in full sentences without any distress. General: cooperative and no acute distress Orientation/consciousness: patient oriented x3 Eyes: General: appearance normal, both eyes and all related structures Resp: Effort & Inspection: normal respiratory effort and able to speak in com plete sentences Auscultation: clear to auscultation bilaterally Cardio: Rate: regular rate Rhythm: regular rhythm GI: Palpation (GI): Soft to palpation Auscultation: normal bowel sounds Skin: General skin exam: no rashes or lesions noted Neuro: General: patient oriented x3 Cognition (Neuro): normal cognition Extrem: General: Yes normal to inspection and Yes no pedal edema Results Labs 03/27/23 22:11 03/27/23 22:11 Labs: Laboratory Results - last 24 hr 03/27/23 03/27/23 22:11 22:11 MCV 74.1 L MCH 21.3 L MCHC 28.8 L RDW 18.6 H Plt Count 424 H MPV 9.6 Immature Gran % (Auto) 0.2 Neut % (Auto) 54.3 Lymph % (Auto) 34.6 [place] % (Auto) 8.6 Eos % (Auto) 1.6 Baso % (Auto) 0.7 Lymph # (Auto) 4.8 [place] # (Auto) 1.2 Eos # (Auto) 0.2 Baso # (Auto) 0.1 Abs Immat Gran (auto) 0.03 Absolute Neuts (auto) 7.5 Absolute Nucleated RBC 0.000 Nucleated RBC % (auto) 0.0 Anion Gap 15 Estim Creat Clear Calc 82.3 Estimated GFR > 60 Random Glucose 109 Calcium 9.9 Magnesium 2.1 Total Bilirubin 0.3 AST 29 ALT 24 Alkaline Phosphatase 87 Total Protein 8.3 H Albumin 4.5 Assessment and Plan (1) Allergic reaction: Status: Acute Plan 48-year-old female with no past medical history presents the hospital after having anaphylaxis to possibly coconut # acute allergic reaction /anaphylaxis - hemodynamically stable at this time - status post multiple IM doses of epinephrine as well as epinephrine drip, Benadryl, Solu-Medrol - patient will be admitted for observation DVT prophylaxis: Early ambulation Time Spent With Patient Time: Total time managing care of this patient today ____ minutes. Quality Stroke Does the patient have a stroke diagnosis?: No VTE Prior VTE?: No VTE Risk Level:: Medical - low VTE Device Contraindication: Treatment Not Indicated VTE Drug Contraindication: Treatment Not Indicated
[2023-03-28 02:08] VITALS: BP 125/67; PULSE 121; RESP 18; TEMP 36.8; O2SAT 100
[2023-03-28 03:22] VITALS: BMI 29.6
[2023-03-28 03:57] VITALS: BP 146/68; PULSE 100; RESP 19; TEMP 36.2; O2SAT 100
[2023-03-28 05:21] LABS: Basophils Percent Auto 0.2 % (0-2); Hematocrit 30.8 % (37.0-47.0); Hemoglobin 9.2 g/dl (12.0-16.0); Imm Gran Abs Auto 0.04 X10*3/uL (0.00-0.03); Imm Gran Pct Auto 0.3 % (0.0-0.4); Lymphocytes Absolute Auto 0.4 X10*3/uL (1.2-4.9); Lymphocytes Percent Auto 3.3 % (20-40); MANUAL DIFF FLAG SCAN; Mean Corpuscular HGB Conc 29.9 g/dl (31.0-35.0); Mean Corpuscular Volume 73.5 fL (80.0-98.0); Mean Platelet Volume 10.3 fL (9.4-12.3); Monocytes Absolute Auto 0.1 X10*3/uL (0.1-1.2); Monocytes Percent Auto 0.8 % (2-11); Neutrophils Absolute Auto 12.5 x10*3/uL (2.0-8.3); Neutrophils Percent Auto 95.4 % (45-73); Platelet Count 317 X10*3/uL (160-400); Red Blood Count 4.19 X10*6/uL (4.20-5.50); Red Cell Distribution Width 18.8 % (11.0-16.0); SCAN SMEAR FLAG 1
[2023-03-28 05:24] LABS: SLIDE REVIEW VERIFIED
[2023-03-28 05:35] LABS: Anion Gap 13 (12-20); Blood Urea Nitrogen 13 mg/dL (9-16); Calcium 9.5 mg/dL (8.4-10.2); Carbon Dioxide 23 mmol/L (22-29); Chloride 110 mmol/L (96-108); Creatinine Clr Calc Pharmacy 93.2; Estimated Glomerular Filt Rate > 60; Glucose Random 92 mg/dL (60-115); Potassium 4.5 mmol/L (3.3-5.1); Sodium 141 mmol/L (135-145)
--- NOTE | 2023-03-28 07:04 | PHA.MEDREC ---
Pharmacy Consult ? Medication Reconciliation Pharmacy has completed the medication reconciliation. COMPLETED BY CECILIA FREEMAN
[2023-03-28 07:26] VITALS: BP 129/76; PULSE 112; RESP 18; TEMP 36.7; O2SAT 99
[2023-03-28] MEDS: 0.9 % Sodium Chloride Flush 3 ML SYRINGE IVFLUSH (07:44)
[2023-03-28] MEDS: Famotidine 20 MG TABLET PO (07:44)
[2023-03-28] MEDS: diphenhydrAMINE HCL 25 MG CAPSULE 50 MG PO (07:44)
[2023-03-28] MEDS: predniSONE 20 MG TABLET 60 MG PO (07:44)
--- NOTE | 2023-03-28 11:20 | MHC.CM.PN ---
pt lives with spouse is independent hgas a ride home will not need servceis when dcd
[2023-03-28 11:39] VITALS: BP 144/73; PULSE 108; RESP 16; TEMP 36.3; O2SAT 99
--- NOTE | 2023-03-28 11:40 | P.DS_ITS ---
DS: Providers Provider Date of Service: 03/28/23 Date of admission: 03/28/23 01:39 Primary care physician: Leslie Resendiz MD DS: Diagnosis Discharge Diagnosis (1) Allergic reaction: Status: Acute DS: Summary Hospital Course Hospital Course: Date of Service: 03/28/23 Chief Complaint:? allergic reaction ?this is a 40-year-old female? with no significant past medical history who comes in from home after having an allergic reaction.? She reports that she ate a piece of sweet that contained coconut, and shortly after developed mouth? tingling, and felt like her throat was closing and she had difficulty breathing and talking. she felt that her throat was swelling. ? She otherwise denies any chest pain, no change in vision, no cough, no shortness of breath, no abdominal pain nausea or vomiting, no diarrhea constipation, no urinary symptoms and no lower extremity edema.? On arrival to the ED patient noted to have uvula swelling.? she received IM Benadryl and Solu-Medrol with swelling persistent, she was a also given IM epinephrine as well as racemic epi.? His swelling did not improve.? Patient was given an additional 0.3 mg of IM epi and the decision was made to start her on an epi drip.? Patient was initially accepted to ICU but several hours later she did improve while awaiting a bed.? After evaluation by ICU a PP, patient was noted to be significantly improved clinically.? On my exam patient has also been improved, and reports that her swelling has gone down significantly.? Patient will be admitted for monitoring overnight.? On arrival to the ED patient noted to be tachycardic in the 120s to 130s, blood pressure otherwise stable ?labs are significant for WBC count of 13.9, potassium 2.8 improved after repletion Patient will be admitted for monitoring acute anaphylactic reaction after eating sweets with coconut patient treated aggressively with multiple dosages of IM epinephrine , Benadryl, Pepcid and IV steroids, all symptoms of shortness of breath and throat swelling resolved patient was observed overnight this morning patient tolerated breakfast, had no recurrent symptoms of shortness of breath, or throat swelling talking in full sentences, lungs are clear to auscultation, low, uvula normal therefore she is being discharged home with epinephrine autoinjector and Benadryl and has recommended outpatient follow-up with PCP and direct marketing representative. Time Spent with Patient Time attestation: Total time managing care of this patient today ____ minutes. Discharge coordination time: Greater than 30 minutes Quality: Safe Use of Opioids Does Pt have an Active Cancer Diagnosis on the Problem List?: No Quality: Stroke Does the patient have a stroke diagnosis?: No Physical Exam Vital Signs: Vital Signs: Last Vital Signs Temp 98.0 F 03/28/23 07:26 Pulse 112 H 03/28/23 07:26 Resp 18 03/28/23 07:26 BP 129/76 03/28/23 07:26 Pulse Ox 99 03/28/23 07:26 O2 Del Method Room Air 03/28/23 07:26 BMI result Body Mass Index 29.6 Const: Other: General awake alert x3, resting comfortably in no acute distress. oral cavity normal uvula normal tongue and lips Neck is supple no JVD. CVS regular rate rhythm, Respiratory lungs clear to auscultation, no respiratory distress, no wheeze, no rhonchi. Gastrointestinal abdomen soft, nontender, bowel sounds audible, Extremities no edema. Neuro nonfocal Skin no rash psych appropriate affect DS: Data Data Completed and Pending Labs on day of discharge: Laboratory Results - last 24 hr 03/27/23 03/27/23 03/28/23 22:11 22:11 05:03 WBC 13.9 H 13.0 H RBC 4.74 4.19 L Hgb 10.1 L 9.2 L Hct 35.1 L 30.8 L MCV 74.1 L 73.5 L MCH 21.3 L 22.0 L MCHC 28.8 L 29.9 L RDW 18.6 H 18.8 H Plt Count 424 H 317 D MPV 9.6 10.3 Immature Gran % (Auto) 0.2 0.3 Neut % (Auto) 54.3 95.4 H Lymph % (Auto) 34.6 3.3 L [place] % (Auto) 8.6 0.8 L Eos % (Auto) 1.6 0.0 Baso % (Auto) 0.7 0.2 Lymph # (Auto) 4.8 0.4 L [place] # (Auto) 1.2 0.1 Eos # (Auto) 0.2 0.0 Baso # (Auto) 0.1 0.0 Abs Immat Gran (auto) 0.03 0.04 H Absolute Neuts (auto) 7.5 12.5 H Absolute Nucleated RBC 0.000 0.000 Nucleated RBC % (auto) 0.0 0.0 Smear Tech's Comments VERIFIED Sodium 141 Potassium 2.8 L D Chloride 105 Carbon Dioxide 24 Anion Gap 15 BUN 17 H Creatinine 0.81 Estim Creat Clear Calc 82.3 Estimated GFR > 60 Random Glucose 109 Calcium 9.9 Magnesium 2.1 Total Bilirubin 0.3 AST 29 ALT 24 Alkaline Phosphatase 87 Total Protein 8.3 H Albumin 4.5 03/28/23 05:03 WBC RBC Hgb Hct MCV MCH MCHC RDW Plt Count MPV Immature Gran % (Auto) Neut % (Auto) Lymph % (Auto) [place] % (Auto) Eos % (Auto) Baso % (Auto) Lymph # (Auto) [place] # (Auto) Eos # (Auto) Baso # (Auto) Abs Immat Gran (auto) Absolute Neuts (auto) Absolute Nucleated RBC Nucleated RBC % (auto) Smear Tech's Comments Sodium 141 Potassium 4.5 D Chloride 110 H Carbon Dioxide 23 Anion Gap 13 BUN 13 Creatinine 0.72 Estim Creat Clear Calc 93.2 Estimated GFR > 60 Random Glucose 92 Calcium 9.5 Magnesium Total Bilirubin AST ALT Alkaline Phosphatase Total Protein Albumin Discharge Plan Discharge Anticipated Discharge Date/Time: 03/28/23 11:34 Patient Disposition: Home, Self-Care Discharge Diagnosis: acute anaphylaxis Referrals: Leslie Coombs MD [Primary Care Provider] - 1 Week Discharge Medications: New epinephrine 0.3 mg/0.3 mL auto-injector 0.3 mg IM Q4H PRN (Reason: anaphylaxis) Qty: 2 0RF diphenhydramine HCl [Benadryl] 25 mg capsule 25 mg PO Q6H PRN (Reason: allergic reaction) Qty: 60 0RF Rx Instructions: take 2 tabs of benadryl 25 mg with any sign of allergy Continued albuterol sulfate 90 mcg/actuation HFA aerosol inhaler 2 puff inhalation Q4-6H PRN (Reason: shortness of breath or wheezing) Qty: 8.5 1RF Discharge Orders: Discharge Order (Routine); Ordered 03/28/23 Ordered By: Jason Adams Diet: Advance to usual diet Activity on Discharge: As tolerated Stand Alone Forms: Patient Portal Discharge page Care Plan Goals: avoid all products containing Coconut if noted to have recurrent episodes of shortness of breath, lips, tongue or throat swelling, take EpiPen IM shot, and Benadryl and immediately return to [place] ED. Health Concerns: take home inhalers Plan of Treatment: follow-up with primary care physician, and need referral to direct marketing representative Assessment: as above
--- NOTE | 2023-03-28 11:43 | MHC.CM.PN ---
pt dcd home no servceis
== END 2023-03-28 12:50 | disposition home or self-care (01) ==
LOC: HO.ED 03-28 00:59 → HO.EDOVER 03-28 01:43 → HO.S3 03-28 01:48
PROVIDERS: Physician Assistant Medical; Admitting Provider Internal Medicine; Emergency Provider Emergency Medicine Emergency Medical Services; PCP Internal Medicine; Visit Provider Hospitalist
DX: T78.04XA Anaphylactic reaction due to fruits and vegetables, initial encounter (principal)
CPT/HCPCS: 36415; 80048; 80053; 83735; 85025; 94640; 96365; 96366; 96367; 96372; 96375; 99221; 99285; J0171; J1200; J2930